=== PATIENT | female | born 1985 | race Two or more races ===

== ENCOUNTER 2019-11-10 19:35 | Emergency (ER) | payer MEDICAID ==
[~2019-11-10] VITALS: Ht 154.9 cm; Wt 95.3 kg
[2019-11-10 20:02] VITALS: BP 114/75
--- NOTE | 2019-11-10 20:05 | NUR ---
PT TAKEN TO LOBBY WITH AND DAUGHTER. URINE OBTAINED.
--- NOTE | 2019-11-10 22:23 | NUR ---
34 Y/O FEMALE C/O VAGINAL BLEEDING AND ABD CRAMPING THAT STARTED TODAY. PT STATES SHE IS 8 WKS . BLOOD BRIGHT RED PER PT. BLEEDING CONTROLLED AT THIS TIME. PT STATES 1 PAD Q2 HRS. PT STATES SHE IS NOT TAKING PRENATALS. 7/10 CRAMPING PAIN AT THIS TIME. PT CALM AND PLEASANT. SITTING IN UPRIGHT POSITION. RR EVEN AND UNLABORED. SKIN WARM AND DRY TO THE TOUCH. VSS. AT BEDSIDE. MEDHX: DENIES ALLERGIES: NKA
[2019-11-10 22:36] LABS: BASOPHILS # (AUTO) 0.1 K/uL (0.00-0.22); BASOPHILS % (AUTO) 0.7 % (0.0-2.0); EOSINOPHILS # (AUTO) 0.3 K/uL (0-0.4); EOSINOPHILS % (AUTO) 3.1 % (0.0-4.0); HEMATOCRIT 39.4 % (36-48); HEMOGLOBIN 12.9 g/dL (12.0-16.0); LYMPHOCYTES # (AUTO) 2.6 K/uL (2.5-16.5); LYMPHOCYTES % (AUTO) 26.1 % (20.5-51.1); MEAN CORPUSCULAR HEMOGLOBIN 30 pg (27-31); MEAN CORPUSCULAR HGB CONC 33 g/dL (33-37); MEAN CORPUSCULAR VOLUME 92.1 fL (80-94); MONOCYTES # (AUTO) 0.8 K/uL (0.8-1.0); MONOCYTES % (AUTO) 8.2 % (1.7-9.3); NEUTROPHILS # (AUTO) 6.2 K/uL (1.8-7.7); NEUTROPHILS % (AUTO) 61.9 % (42.2-75.2); PLATELET COUNT (AUTO) 278 K/uL (140-450); RED BLOOD CELL COUNT(AUTO) 4.28 MIL/uL (4.20-5.40); RED CELL DISTRIBUTION WIDTH 12.8 % (11.6-13.7); WHITE BLOOD COUNT (AUTO) 10.1 K/uL (4.8-10.8)
--- NOTE | 2019-11-10 22:39 | NUR ---
Dr. Vargas examining patient.
[2019-11-10 22:59] LABS: APPEARANCE,URINE CLEAR (CLEAR); BILIRUBIN,URINE NEGATIVE (NEGATIVE); BLOOD, URINE 2+ (NEGATIVE); COLOR,URINE YELLOW (YELLOW); LEUKOCYTE ESTERASE ,URINE NEGATIVE (NEGATIVE); NITRITE, URINE NEGATIVE (NEGATIVE); UGLUCOSE NEGATIVE (NEGATIVE)
[2019-11-10 23:07] LABS: ANION GAP 13.9 (8-16); CARBON DIOXIDE 26.8 mmol/L (21-32); CREATININE 0.8 mg/dL (0.6-1.3); POTASSIUM 3.7 mmol/L (3.5-5.1)
[2019-11-10 23:28] LABS: RBC,URINE 0-5 /HPF (0-5); WBC,URINE 0-5 /HPF (0-5)
--- NOTE | 2019-11-10 23:30 | NUR ---
PT SITTING UPRIGHT IN BED, DENIES PAIN AT THIS TIME. RR EVEN AND UNLABORED. VSS. WILL CONTINUE TO MONITOR.
--- NOTE | 2019-11-11 00:40 | NUR ---
PT RESTING IN BED WITH EYES CLOSED. VISIBLE RISE AND FALL OF THE CHEST. AROUSABLE TO NAME. VSS. WILL CONTINUE TO MONITOR.
[2019-11-11 00:56] VITALS: BP 114/75
--- NOTE | 2019-11-11 00:57 | NUR ---
Patient discharged with v/s stable. Written and verbal after care instructions given and explained. Patient verbalized understanding. Ambulatory with steady gait. All questions addressed prior to discharge. Advised to follow up with PMD. PT ACCOMPANIED BY
== END 2019-11-11 00:57 | disposition home or self-care (01) ==
LOC: MED 19:35
DX: O20.8 Other hemorrhage in early pregnancy (principal); O26.891 Other specified pregnancy related conditions, first trimester; R10.30 Lower abdominal pain, unspecified; Z3A.01 Less than 8 weeks gestation of pregnancy
CPT/HCPCS: 36415; 76801; 80048; 81001; 81025; 84702; 85025; 86900; 86901; 99284; Q0092